=== PATIENT | female | born 1950 | race Caucasian/White ===

== ENCOUNTER 2017-10-02 08:55 | Outpatient (CLI) | payer MEDICARE ==
--- NOTE | 2017-10-23 12:14 | MMO ---
BILATERAL SCREENING MAMMOGRAMS: Date: 10/02/17 Outside images were unable to be obtained; therefore, this is a baseline study. This patient's mammogram was interpreted with the assistance of computer-aided detection. FINDINGS: Heterogeneously dense glandular pattern. No mass or distortion. No suspicious calcification. There ar e scattered benign-appearing calcifications and vascular calcifications. Recommend one year follow-up . IMPRESSION: BIRADS 2: Benign Finding(s) POS: CRUZ
== END 2017-10-02 08:56 | disposition home or self-care (01) ==
LOC: SCSMAMMO 08:55
PROVIDERS: ATTEND Family Medicine
DX: Z12.31 Encounter for screening mammogram for malignant neoplasm of breast (principal)
CPT/HCPCS: 77067; G0202

== ENCOUNTER 2018-01-20 10:35 | Outpatient (CLI) | payer MEDICARE ==
--- NOTE | 2018-01-20 13:04 | RAD ---
LEFT HIP TWO VIEWS: HISTORY: Left hip pain. FINDINGS: Joint space is fairly well preserved with minimal osteophytic change. Some tiny cystic change is see n along the lateral margin of the acetabulum. No fractures or other findings. IMPRESSION: Minimal arthritic changes of the left hip. POS: C
== END 2018-01-20 10:36 | disposition home or self-care (01) ==
LOC: SCSRAD 10:35
PROVIDERS: ATTEND Family Medicine
DX: M25.552 Pain in left hip (principal)

== ENCOUNTER 2018-02-11 12:47 | Outpatient (CLI) | payer MEDICARE ==
--- NOTE | 2018-02-11 14:33 | MRI ---
MRI LUMBAR SPINE WITHOUT CONTRAST: Date: 02-11-18 Comparison: None. History: Left leg pain, radiculopathy. Right hip, leg, and foot pain. Technique: Multiplanar, multisequence MR imaging of the lumbar spine provided without contrast. FINDINGS: The sagittal STIR imaging demonstrates no focal area of osseous marrow edema. Incompletely assessed l evoscoliosis of the lumbar spine is present, centered at L3. No anterolisthesis or retrolisthesis is evident. Assuming five lumbar type vertebral bodies, the conus medullaris terminates at the T12-L1 le cintia. T12-L1: Intervertebral disc height and signal intensity is within normal limits. Mild bilateral facet hypertrophy. No significant central canal or neural foraminal stenosis. L1-2: Mild bilateral facet hypertrophy. Intervertebral disc height and signal intensity is within nor mal limits with no significant central canal or neural foraminal stenosis. L2-3: Disc space narrowing, disc desiccation and disc bulge present. Bilateral facet hypertrophy note d, right greater than left. There is a small left foraminal disc protrusion. There is mild central ca nal stenosis. No significant neural foraminal stenosis. L3-4: Moderate bilateral facet hypertrophy and hypertrophy of the ligamentum flavum noted, right grea ter than left. There is disc space narrowing, disc desiccation, and disc bulge with a central annular tear. There is mild central canal stenosis. There is mild bilateral neural foraminal stenosis. L4-5: There is disc space narrowing, disc desiccation, and disc bulge with an annular tear in the ellyn tral/right paracentral region. There is prominent bilateral facet hypertrophy. There is moderate to s evere right neural foraminal stenosis and mild left neural foraminal stenosis. Posterior to the L4 vertebral body in the left paracentral region there is an oblong/oval lesion todd uring 1.5 cm in craniocaudal dimension which is felt to most likely represent a sequestered disc frag ment emanating from the left paracentral region of the L4-5 intervertebral disc. This causes severe l eft lateral recess stenosis and approaches the superior aspect of the neural foramen on the left at L 5-S1, abutting the exiting L5 nerve root on the left. L5-S1: Intervertebral disc height and signal intensity is grossly unremarkable. There is facet hypert rophy bilaterally, left greater than right. No significant central canal stenosis. There is a degree of left neural foraminal stenosis on the basis of the above described lesion posterior to L5 vertebra l body. The imaged retroperitoneal structures appear grossly unremarkable. IMPRESSION: Multilevel degenerative change seen throughout the lumbar spine. There is an oval lesion posterior to the left lateral aspect of the L5 vertebral body which is felt to represent a sequestered disc fragm ent, donor site left paracentral aspect of L4-5 disc with associated left lateral recess stenosis pos terior to the L5 vertebral body abutting the superior aspect of the L5-S1 left neural foramen. Post c ontrast imaging may be beneficial to exclude a neoplastic lesion, such as a schwannoma, which is felt to be a much less likely possibility. Code T POS: CRUZ
== END 2018-02-11 12:48 | disposition home or self-care (01) ==
LOC: SCSMRI 12:47
PROVIDERS: ATTEND Orthopaedic Surgery
DX: M47.26 Other spondylosis with radiculopathy, lumbar region (principal); M79.605 Pain in left leg; M48.061 Spinal stenosis, lumbar region without neurogenic claudication
CPT/HCPCS: 72148

== ENCOUNTER 2018-04-22 10:31 | Outpatient (CLI) | payer MEDICARE ==
[2018-04-22 11:25] LABS: Hemoglobin 12.6 g/dL (12.0-16.0); Mean Corpuscular HGB CONC 34.2 g/dL (32.0-36.0); Mean Corpuscular Hemoglobin 32.2 pg (27.0-31.0); Mean Corpuscular Volume 94.2 fl (81.0-99.0); Mean Platelet Volume 6.6 fL (7.4-10.4); Platelet Count 214 thou/uL (130-400); RBC Distribution Width 12.1 % (11.5-14.5); White Blood Cell (WBC) Count 6.5 thou/uL (4.8-10.8)
[2018-04-22 11:32] LABS: PTT 24.8 SEC (22.9-36.1); Prothrombin Time 12.8 SEC (12.0-14.7)
[2018-04-22 11:50] LABS: Anion Gap 11 mmol/L (10-20); BUN (Urea Nitrogen) 15 mg/dL (9.8-20.1); Calc. Creatinine Clearance 0 mL/min (70-130); Calcium 10.8 mg/dL (7.8-10.44); Carbon Dioxide 29 mmol/L (23-31); Estimated GFR-MDRD 77; Glucose 81 mg/dL (80-115); Potassium 4.3 mmol/L (3.5-5.1); Sodium 139 mmol/L (136-145)
[2018-04-22 12:06] LABS: Chloride 103 mmol/L (98-107)
--- NOTE | 2018-04-22 23:54 | EKG ---
Test Reason : Blood Pressure : / mmHG Vent. Rate : 068 BPM Atrial Rate : 068 BPM P-R Int : 146 ms QRS Dur : 072 ms QT Int : 380 ms P-R-T Axes : 082 094 081 degrees QTc Int : 404 ms Normal sinus rhythm Rightward axis Low voltage QRS Borderline ECG No previous ECGs available Confirmed by Shelly JOHNSTON ([id number]) on 04/22/2018 11:53:59 PM Referred By: GORDON Confirmed By:Shelly JOHNSTON
== END 2018-04-22 10:32 | disposition home or self-care (01) ==
LOC: LABBT 10:31
PROVIDERS: ATTEND Surgery
DX: Z01.818 Encounter for other preprocedural examination (principal); M51.16 Intervertebral disc disorders with radiculopathy, lumbar region
CPT/HCPCS: 80048; 85027; 85610; 85730; 93005; 93010

== ENCOUNTER 2018-04-29 11:11 | Day surgery (SDC) | payer MEDICARE ==
[2018-04-29] MEDS ORDERED: Midazolam HCl 2 mg/2 ml Vial ONE ×2 (14:28→16:35)
[2018-04-29] MEDS ORDERED: Thrombin 5000 UNITS/5 ML VIAL ONE ×2 (14:59→15:58)
[2018-04-29] MEDS ORDERED: Sodium Chloride 0.9% 10 ML ONE (14:59)
[2018-04-29] MEDS ORDERED: Bacitracin Zinc Ointment 30 gm TUBE ONE (14:59)
[2018-04-29] MEDS ORDERED: Clindamycin/D5W 900 mg/50 ml Premix Bag ONE (15:33)
[2018-04-29] MEDS ORDERED: Levofloxacin 500 mg/D5W 100 ml Premix Bag ONE (15:33)
[2018-04-29] MEDS ORDERED: Ketorolac Tromethamine 30 MG/ML VIAL ONE (15:58)
[2018-04-29] MEDS ORDERED: ePHEDrine/0.9% NaCl/PF SYRINGE 50 mg/10 ml ONE (15:58)
[2018-04-29] MEDS ORDERED: PHENYLEPHRINE-NS 100 MCG/ML 10 ML SYRINGE ONE (15:58)
[2018-04-29] MEDS ORDERED: Dexamethasone 20 MG/5 ML VIAL ONE (15:58)
[2018-04-29] MEDS ORDERED: Lidocaine 1% PF 5 ML VIAL ONE (15:58)
[2018-04-29] MEDS ORDERED: Ondansetron HCl/PF 4 MG/2 ML Vial ONE (15:58)
[2018-04-29] MEDS ORDERED: PROPOFOL 200 MG/20 ML VIAL ONE (15:58)
[2018-04-29] MEDS ORDERED: Naloxone HCl 0.4 mg/ml Vial ONE (15:58)
[2018-04-29] MEDS ORDERED: Glycopyrrolate 0.2 MG/ML 5 ML SYRINGE ONE (15:58)
[2018-04-29] MEDS ORDERED: Fentanyl 100 MCG/2 ML VIAL ONE ×3 (16:32→20:07)
[2018-04-29] MEDS ORDERED: Famotidine/PF 20 mg/2ml Vial ONE (16:32)
[2018-04-29] MEDS ORDERED: Ondansetron HCl/PF 4 MG/2 ML Vial IVP PRN (18:41)
[2018-04-29] MEDS ORDERED: Promethazine HCl 25 MG/ML VIAL SLOW IVP PRN (18:41)
[2018-04-29] MEDS ORDERED: Meperidine HCl/PF 25 MG/ML VIAL SLOW IVP PRN (18:41)
[2018-04-29] MEDS ORDERED: Promethazine HCl 25 MG/ML VIAL IM PRN ×2 (18:41→19:22)
[2018-04-29] MEDS ORDERED: SUGAMMADEX SODIUM 200 MG/2 ML VIAL ONE (19:18)
[2018-04-29] MEDS ORDERED: traMADol HCl 50 MG TAB PO PRN (19:22)
[2018-04-29] MEDS ORDERED: Milk Of Magnesia 30 ML UDCUP PO PRN (19:22)
[2018-04-29] MEDS ORDERED: tiZANidine HCl 4 MG TAB PO PRN (19:22)
[2018-04-29] MEDS ORDERED: HYDROcodone/Acetaminophen 7.5/325 mg Tablet PO PRN (19:22)
[2018-04-29] MEDS ORDERED: Acetaminophen 325 MG TAB PO PRN (19:22)
[2018-04-29] MEDS ORDERED: Mag-Al 1200 mg/1200 mg/30 ML UDCUP PO PRN (19:22)
[2018-04-29] MEDS ORDERED: Acetaminophen/Codeine 30-300mg Tablet PO PRN (19:22)
[2018-04-29] MEDS ORDERED: Fleet Enema 133 ML BOT PR PRN (19:22)
[2018-04-29] MEDS ORDERED: Bisacodyl 10 MG SUPP PR PRN (19:22)
[2018-04-29] MEDS ORDERED: HYDROmorphone 0.5 MG/0.5 ML SYRINGE ONE ×2 (19:29→19:49)
[2018-04-29] MEDS ORDERED: Sodium Chloride 0.9% 1,000 ML IV SCH (19:30)
[2018-04-29 21:37] VITALS: BMI 20.7
[2018-04-29] MEDS: ALPRAZolam 0.25 MG TAB PO SCH ×2 (21:58→23:16)
[2018-04-29] MEDS: Clindamycin/D5W 900 MG in Premix Bag 1 BAG IVPB SCH (22:23)
[2018-04-30] MEDS: Clindamycin/D5W 900 MG in Premix Bag 1 BAG IVPB SCH (05:59)
[2018-04-30] MEDS: ALPRAZolam 0.25 MG TAB PO SCH ×2 (07:41→10:56)
[2018-04-30] MEDS: Ubidecarenone 50 MG CAP PO SCH ×2 (07:42→11:07)
[2018-04-30] MEDS: Ascorbic Acid 500 mg Chewable Tablet PO SCH ×2 (07:42→11:07)
[2018-04-30] MEDS: Multivit, Therapeutic 1 TAB PO SCH ×2 (07:42→11:07)
[2018-04-30] MEDS: Calcium Carbonate 600 MG TAB PO SCH ×2 (07:42→11:07)
[2018-04-30 08:23] VITALS: BP 129/71; TEMP 97.9
[2018-04-30] MEDS ORDERED: Estradiol 1 MG TAB PO SCH (09:00)
[2018-04-30] MEDS ORDERED: Stress 600 With Zinc 1 TAB PO SCH (09:00)
--- NOTE | 2018-04-30 09:49 | OP ---
DATE OF SURGERY: 04/29/2018 OR: 11. WOUND TYPE: Type 1 wound. SURGEON: Wil Heaton M.D. REMOTE RECRUITER: Mayco Alexander PA-C. PREPROCEDURE DIAGNOSES: Left L3-L4 stenosis with facet hypertrophy and osteophytic growth with left L4-L5 disk extrusion, left L5 radiculopathy. POSTPROCEDURE DIAGNOSES: Left L3-L4 stenosis with facet hypertrophy and osteophytic growth with left L4-L5 disk extrusion, left L5 radiculopathy. PROCEDURES PERFORMED: 1. Left L3-L4 hemilaminotomy, foraminotomy for decompression of left L3 and left L4 nerve roots. 2. Left L4-L5 hemilaminotomy, foraminotomy, and diskectomy. 3. Use of operative microscope for microdissection. DESCRIPTION OF PROCEDURE: After informed consent was obtained from the patient, the patient brought to OR 11. Proper patient pause and identification was carried out. She was placed under excellent g eneral endotracheal anesthesia, positioned prone on the OR table. All appropriate points were padded . We identified a midline oscar to allow for approach to the L3, L4, L5 segments. This region was st erilely cleansed, prepared, and draped. Proper patient pause and identification was carried out. Le ft L3, left L4, and left L5 hemilamina and facet complexes were exposed. A localization film confirm ed our area of interest. We then performed a left L3-L4 and left L4-L5 hemilaminotomies, foraminotom ies and decompression of left L3 and left L4 nerve roots and removal of osteophytic spurs. We turned our attention to the left L4-L5 segment as well and did a diskectomy there and remove multiple soft fragments along the pedicle of the left L5 segment and into the foramen and removed any disk fragment s that were soft from the L4-L5 segment in the disk space. Copious irrigation occurred throughout as did maximizing hemostasis. There was no spinal fluid leak. The wound was then closed in anatomic l lombardi following the sprinkling of vancomycin powder. The patient then emerged from anesthesia.
--- NOTE | 2018-04-30 11:06 | DIS ---
DATE OF ADMISSION: 04/29/2018 DATE OF DISCHARGE: 04/30/2018 DISCHARGE DIAGNOSES: 1. Low back pain with left lower extremity pain. 2. Lumbar radiculopathy with left HNP L4-5 and lumbar spinal stenosis. 3. Anxiety disorder. HOSPITAL COURSE: Ms. Roche was admitted on 04/29/2018 to undergo a left L3-4, left L4-5 hemilaminoto my, foraminotomy, and diskectomy at the L4-5 level. The patient's surgery was without complication a nd she recovered for 1 overnight stay on the 3rd floor. On physical exam, she has good strength in the bilateral lower extremities. She has intermittent lef t-sided buttock pain. She states this is somewhat improved postoperatively. Appropriate patient edu cation was given and outpatient followups were provided. At the time of discharge, the patient has m et criteria and ample opportunity was given to the patient and her to discuss their questions and concerns. Again, there were very pleased with her outcome postoperatively and instructed to randy l the office with any questions or concerns prior to her next followup appointment.
[2018-04-30] MEDS ORDERED: Lovastatin 20 MG TAB PO SCH (17:00)
== END 2018-04-30 11:20 | disposition home or self-care (01) ==
LOC: SDC 11:11 → SURG B 19:22 → SDC 04-30 11:20
PROVIDERS: ATTEND Surgery
PROC: 01NB0ZZ Release Lumbar Nerve, Open Approach (ICD-10-PCS; principal; 2018-04-29)
PROC: 0SB20ZZ Excision of Lumbar Vertebral Disc, Open Approach (ICD-10-PCS; 2018-04-29)
DX: M51.16 Intervertebral disc disorders with radiculopathy, lumbar region (principal); M48.061 Spinal stenosis, lumbar region without neurogenic claudication; F41.9 Anxiety disorder, unspecified; Z88.0 Allergy status to penicillin; Z88.2 Allergy status to sulfonamides; Z79.82 Long term (current) use of aspirin; Z79.899 Other long term (current) drug therapy
CPT/HCPCS: 76001; 96374; A4216; J0131; J1100; J1170; J1885; J1956; J2001; J2250; J2310; J2405; J2704; J3010; J3370; J3490; S0028

== ENCOUNTER 2018-10-07 08:58 | Outpatient (CLI) | payer MEDICARE ==
--- NOTE | 2018-10-07 09:46 | MMO ---
BILATERAL SCREENING MAMMOGRAM: History: 68-year-old female for screening mammography. Comparison: 10-02-17, 10-01-16, 09-19-15 FINDINGS: Bilateral MLO and CC views of the breast shows heterogeneously dense breast parenchyma, which may low er the sensitivity of mammography. Vascular calcifications are seen. Other benign appearing calcifica tions are seen in the both breasts. There is no evidence of suspicious mass, suspicious cluster of mi crocalcifications or area of architectural distortion. This study is interpreted with the assistance of computer aided detection. IMPRESSION: BIRADS category 2 - benign findings. Annual screening mammography is recommended. POS: CRUZ
== END 2018-10-07 08:59 | disposition home or self-care (01) ==
LOC: SCSMAMMO 08:58
PROVIDERS: ATTEND Family Medicine
DX: Z12.31 Encounter for screening mammogram for malignant neoplasm of breast (principal)
CPT/HCPCS: 77067